=== PATIENT | male | born 1990 | race Hispanic/Latino ===

== ENCOUNTER 2019-06-21 14:41 | Emergency (ER) | payer OTHER ==
[2019-06-21] MEDS ORDERED: MORPHINE SULFATE INJ 10 MG/ML VIAL ONE (14:49)
[2019-06-21] MEDS ORDERED: ONDANSETRON ODT 8 MG TAB ONE (14:50)
[2019-06-21] MEDS ORDERED: ALUM & MAG HYDROX-SIMETHICONE 30 ML, LIDOCAINE VISCOUS 2% 15 ML PO ONE ×2 (14:52)
[2019-06-21] MEDS ORDERED: MORPHINE SULFATE INJ 10 MG/ML VIAL IM ONE (14:55)
[2019-06-21] MEDS ORDERED: ALUM & MAG HYDROX-SIMETHICONE 30 ML UD ONE (14:56)
[2019-06-21] MEDS ORDERED: LIDOCAINE HCL 2% (MOUTH-THROAT) 15 ML UD ONE (14:56)
[2019-06-21] MEDS ORDERED: ONDANSETRON ODT 8 MG TAB SL ONE (14:56)
--- NOTE | 2019-06-21 15:49 | RAD ---
EXAM DESCRIPTION: Abdomen Series CLINICAL HISTORY: acute abrupt upper abd pain COMPARISON: None. FINDINGS: The single view of the chest shows no parenchymal opacities, pleural effusions or pneumothorax. The heart size and pulmonary vasculature are normal. The supine and upright abdominal radiographs show a non-obstructive bowel gas pattern. No pneumoperitoneum, air fluid levels, or mass effect. No radiopaque calculi or calcifications are noted. There is no evidence of hepatosplenomegaly. No clinically significant osseous abnormalities noted. IMPRESSION: Non-obstructive bowel gas pattern. Electronically signed by: Dorinda Reyna MD 06/21/2019 3:47 PM [facility]
[2019-06-21] MEDS ORDERED: KETOROLAC TROMETHAMINE INJ 30 MG/ML VIAL IV ONE (15:55)
[2019-06-21] MEDS ORDERED: SUCRALFATE 1 GM/10 ML 1 GM UD PO ONE (15:55)
--- NOTE | 2019-06-21 16:42 | CT ---
EXAM DESCRIPTION: Abdoment/Pelvis w/o Contrast CLINICAL HISTORY: 29 years, Male, acute upper abd pain, epigastric to ruq COMPARISON: Abdominal radiograph same day.. TECHNIQUE: CT of the abdomen and pelvis is performed without IV or p.o. contrast. Multiplanar reconstructions were obtained. FINDINGS: Partially limited evaluation without intravenous contrast. The lung bases are clear. The Liver, spleen, and pancreas are unremarkable. Cholelithiasis with at least one large gallstone measuring 2.2 cm. No significant dilation of the gallbladder or pericholecystic inflammatory changes. The kidneys are normal in contour without hydronephrosis, nephrolithiasis, or perinephric fluid collection. The ureters are unremarkable without stone. The partially distended bladder is normal in appearance. No focal bowel wall thickening or bowel obstruction. The appendix is not clearly visualized, however no focal inflammatory change within the right lower abdominal quadrant is identified to suggest acute appendicitis. No free fluid within the pelvis. The reproductive organs are unremarkable. Small fat-containing right inguinal hernia. No lymphadenopathy. No acute osseous abnormality. IMPRESSION: 1. Cholelithiasis without secondary signs of acute cholecystitis on CT. Clinical correlation requested. Further evaluation with ultrasound as clinically warranted. 2. No urinary tract calculi. This exam was performed according to our departmental dose-optimization program, which includes automated exposure control, adjustment of the mA and/or kV according to patient size and/or use of iterative reconstruction technique. Electronically signed by: Julian Alvarez DO 06/21/2019 4:40 PM [employer]
[2019-06-21] MEDS ORDERED: SODIUM CHLORIDE 0.9% 1000ML 1,000 ML IVS ONE (16:46)
--- NOTE | 2019-06-21 17:00 | ED.PDOC ---
History of Present Illness - General Chief Complaint: Abdominal Pain Stated Complaint: Abdominal discomfort Time Seen by Provider: 06/21/19 14:45 Source: patient Exam Limitations: no limitations - History of Present Illness Initial Comments: he patient is a 29-year-old male presenting to the emergency room secondary to acute onset pain approximate 45 minutes prior to arrival with some nausea and vomiting. Pain is in the right upper quadrant and epigastric area. He is extremely uncomfortable. He has had 4 or 5 episodes just like this over the last 3 years. No sources as been definitively found to this point.. No fever. No history of any gastric ulcers. o diarrhea or constipation. No urinary symptoms. No back pain. No chest pain. No syncope. Timing/Duration: 1 hour Severity: severe Improving Factors: nothing Worsening Factors: nothing Associated Symptoms: diaphoresis, loss of appetite, nausea/vomiting Allergies/Adverse Reactions: Allergies NO KNOWN ALLERGY Allergy (Verified 06/21/19 14:51) Review of Systems - Review of Systems Constitutional: States: no symptoms reported EENTM: States: no symptoms reported Respiratory: States: no symptoms reported Cardiology: States: no symptoms reported Gastrointestinal/Abdominal: States: see HPI Genitourinary: States: no symptoms reported Musculoskeletal: States: no symptoms reported Skin: States: no symptoms reported Neurological: States: no symptoms reported Endocrine: States: no symptoms reported All other Systems: No Change from Baseline Past Medical History (General) - Patient Medical History Hx Stroke: No Hx Congestive Heart Failure: No Hx Diabetes: No Hx MRSA: No - Vaccination History Hx Influenza Vaccination: No Hx Pneumococcal Vaccination: No - Social History Hx Tobacco Use: No Hx Alcohol Use: Yes - Occasional use Family Medical History - Family History Father Family History: No Known Living Status: Still Living Physical Exam - Physical Exam General Appearance: Alert, Comfortable, No apparent distress Eye Exam: bilateral normal Ears, Nose, Throat: hearing grossly normal, normal pharynx Neck: full range of motion Respiratory: lungs clear, normal breath sounds, no respiratory distress, no accessory muscle use Cardiovascular/Chest: normal peripheral pulses, regular rate, rhythm, no edema Peripheral Pulses: radial,right: 2+, radial,left: 2+ Gastrointestinal/Abdominal: soft, other - epigastric and right upper quadrant discomfort palpation. No definite palpable mass. Rectal Exam: deferred Back Exam: no CVA tenderness, no vertebral tenderness Extremity: normal range of motion, non-tender, normal inspection, no pedal edema, normal capillary refill Neurologic: diet clerk II-XII nml as tested, alert, normal mood/affect, oriented x 3 Skin Exam: normal color Comments: Vital Signs - 24 hr 06/21/19 06/21/19 06/21/19 14:42 14:45 15:42 Temperature 98.7 F Pulse Rate [ 77 77 71 Left Radial] Respiratory 22 22 20 Rate Blood Pressure 146/94 142/83 [Left Arm] O2 Sat by Pulse 99 98 Oximetry Progress - Progress Progress: 06/21/19 17:01 the patient is a 29-year-old male presenting to the emergency room secondary to acute onset abdominal pain. Most likely source is biliary colic related to the large gallstone. The patient has received several medications here and the pain appears to have resolved. He needs to maintain a bland diet and keep himself well-hydrated. He does need to consult a general surgeon in the coming week to plan on getting the gallbladder removed. ER warnings were given for any acute worsening. we will send a disc of his imaging with him so he can take it to the general surgeon. flex almaguer [id number] - Results/Orders Results/Orders: acute abdominal series appears benign. CT of abdomen and pelvis without contrast shows a 2.2 cmstone in the gallbladder. No evidence of surrounding inflammation or infection. No evidence of appendicitis. No evidence of urological pathology. See report for details. Laboratory Tests 06/21/19 06/21/19 06/21/19 14:52 14:53 14:53 WBC 6.7 RBC 4.86 Hgb 15.2 Hct 45.4 MCV 93.6 MCH 31.4 H MCHC 33.5 RDW 13.0 Plt Count 195 MPV 9.0 Absolute Neuts (auto) 3.40 Absolute Lymphs (auto) 2.70 Absolute Monos (auto) 0.50 Absolute Eos (auto) 0.10 Absolute Basos (auto) 0.00 Neutrophils % 51.2 Lymphocytes % 40.3 Monocytes % 7.3 Eosinophils % 0.8 L Basophils % 0.4 PT 11.3 H INR 1.13 PTT (SP) 22.5 Sodium Potassium Chloride Carbon Dioxide Anion Gap BUN Creatinine BUN/Creatinine Ratio Random Glucose Serum Osmolality Lactic Acid Calcium Total Bilirubin AST ALT Alkaline Phosphatase Creatine Kinase 129 CK-MB (CK-2) 1.5 CK-MB (CK-2) % Not Reportable Troponin I < 0.02 Serum Total Protein Albumin Globulin Albumin/Globulin Ratio Amylase 65 Lipase TSH Urine Color Urine Appearance Urine pH Ur Specific [place] Urine Protein Urine Glucose (UA) Urine Ketones Urine Blood Urine Nitrite Urine Bilirubin Urine Urobilinogen Ur Leukocyte Esterase Urine RBC Urine WBC Ur Epithelial Cells Urine Bacteria 06/21/19 06/21/19 06/21/19 14:53 14:53 15:33 WBC RBC Hgb Hct MCV MCH MCHC RDW Plt Count MPV Absolute Neuts (auto) Absolute Lymphs (auto) Absolute Monos (auto) Absolute Eos (auto) Absolute Basos (auto) Neutrophils % Lymphocytes % Monocytes % Eosinophils % Basophils % PT INR PTT (SP) Sodium 138 Potassium 3.7 Chloride 100 L Carbon Dioxide 22 Anion Gap 19.7 H BUN 13 Creatinine 1.16 BUN/Creatinine Ratio 11.2 Random Glucose 111 H Serum Osmolality 276.5 Lactic Acid 1.5 Calcium 9.7 Total Bilirubin 0.9 AST 23 ALT 21 Alkaline Phosphatase 63 Creatine Kinase CK-MB (CK-2) CK-MB (CK-2) % Troponin I Serum Total Protein 7.4 Albumin 4.8 Globulin 2.6 Albumin/Globulin Ratio 1.8 Amylase Lipase 36 TSH 1.83 Urine Color Yellow Urine Appearance Clear Urine pH 5.5 Ur Specific [place] 1.025 Urine Protein Negative Urine Glucose (UA) Negative Urine Ketones 15 H Urine Blood Negative Urine Nitrite Negative Urine Bilirubin Negative Urine Urobilinogen 0.2 Ur Leukocyte Esterase Negative Urine RBC 0-1 Urine WBC 0-1 Ur Epithelial Cells 0 Urine Bacteria 0 Departure - Departure Clinical Impression: Biliary colic, Gallstones Disposition: Discharge to Home or Self Care Condition: Fair Departure Forms: ED Discharge - Pt. Copy, Patient Portal Self Enrollment Instructions: Gallstones (DC) Diet: low fat, low cholesterol Activity: increase activity as tolerated Additional Instructions: the patient is a 29-year-old male presenting to the emergency room secondary to acute onset abdominal pain. Most likely source is biliary colic related to the large gallstone. The patient has received several medications here and the pain appears to have resolved. He needs to maintain a bland diet and keep himself well-hydrated. He does need to consult a general surgeon in the coming week to plan on getting the gallbladder removed. ER warnings were given for any acute worsening. we will send a disc of his imaging with him so he can take it to the general surgeon.
[2019-06-21 18:07] VITALS: BP 144/76; TEMP 97.6; O2SAT 100
== END 2019-06-21 18:05 | disposition home or self-care (01) ==
LOC: ER 14:41
DX: K80.20 Calculus of gallbladder without cholecystitis without obstruction (principal); R11.2 Nausea with vomiting, unspecified
CPT/HCPCS: 36415; 74019; 74176; 80053; 81001; 82150; 82550; 82553; 83605; 83690; 84443; 84484; 85025; 85610; 85730; J1885; J2270; J7030